=== PATIENT | male | born 1975 | race Caucasian/White ===

== ENCOUNTER 2019-10-06 10:43 | Emergency (ER) | payer SELFPAY ==
[2019-10-06] MEDS ORDERED: Ibuprofen 200 MG TAB ONE (11:02)
[2019-10-06 11:18] LABS: #Basophils 0.1 thou/uL (0.0-0.2); #Eosinphils 0.2 thou/uL (0.0-0.7); #Lymphocytes 1.5 thou/uL (1.20-3.40); #Monocytes 1.1 thou/uL (0.11-0.59); #Neutrophils 11.8 thou/uL (1.40-6.50); %Basophils 0.7 % (0.0-1.0); %Eosinophils 1.3 % (0.0-10.0); %Monocytes 7.3 % (0.0-10.0); %Neutrophils 80.7 % (42.0-75.0); Hemoglobin 14.4 g/dL (14.0-18.0); Mean Corpuscular HGB CONC 32.8 g/dL (32.0-36.0); Mean Corpuscular Hemoglobin 30.4 pg (27.0-31.0); Mean Corpuscular Volume 92.8 fL (78.0-98.0); Platelet Count 215 thou/uL (130-400); RBC Distribution Width 12.9 % (11.5-14.5); Red Blood Cell (RBC) Count 4.74 mill/uL (4.70-6.10); White Blood Cell (WBC) Count 14.6 thou/uL (4.8-10.8)
--- NOTE | 2019-10-06 11:40 | RAD ---
RIGHT KNEE 4 VIEWS: INDICATION: Right knee pain. COMPARISON: None. FINDINGS: There is soft tissue swelling involving the anterior aspect of the right knee. No acute fracture is evident. No joint capsular distention is evident. IMPRESSION: Anterior right knee soft tissue swelling. POS: [facility]
[2019-10-06 11:44] LABS: ALT (SGPT) 33 U/L (8-55); AST (SGOT) 23 U/L (5-34); Albumin 4.3 g/dL (3.5-5.0); Alkaline Phosphatase 113 U/L (40-110); Anion Gap 13 mmol/L (10-20); BUN (Urea Nitrogen) 15 mg/dL (8.9-20.6); Bilirubin, Total 1.1 mg/dL (0.2-1.2); Calc. Creatinine Clearance 0 mL/min (70-130); Carbon Dioxide 27 mmol/L (22-29); Chloride 99 mmol/L (98-107); Estimated GFR-MDRD 85; Globulin 2.3 g/dL (2.4-3.5); Glucose 123 mg/dL (70-105); Potassium 3.9 mmol/L (3.5-5.1); Protein, Total 6.6 g/dL (6.0-8.3); Sodium 135 mmol/L (136-145)
[2019-10-06] MEDS ORDERED: cefTRIAXone\\ROCEPHIN 2 GM VIAL ONE (12:19)
[2019-10-06] MEDS ORDERED: Lidocaine 1% (PF) 30 ML VIAL ONE (12:19)
[2019-10-06] MEDS ORDERED: Vancomycin 1 GM/200 ML BAG ONE (12:19)
[2019-10-06] MEDS ORDERED: Morphine 4 MG/ML VIAL ONE (12:30)
[2019-10-06] MEDS ORDERED: Ondansetron PF 4 MG/2 ML Vial ONE (12:30)
[2019-10-06 15:41] LABS: BF Color Yellow; BF RBC Count - Manual 1300 /cumm; BF WBC/Nonhematics Ct.-Manual 79 /cumm; Body Fluid Source Synovial Fluid; Clarity Hazy (Clear); Tube # EDTA
[2019-10-06 16:20] LABS: BF Segmented Neutrophils 19 %; Cell Count Non Hematic 78 %; Lymphocytes 3 %
== END 2019-10-06 16:48 | disposition home or self-care (01) ==
LOC: ERS 10:43
DX: L03.115 Cellulitis of right lower limb (principal)
CPT/HCPCS: 20610; 36415; 80053; 82945; 83605; 83615; 84157; 85025; 85060; 85652; 86140; 87070; 87205; 89051; 89060; 96365; 96375; J0696; J2001; J2270; J2405; J3370